=== PATIENT | female | born 1970 | race Caucasian/White ===

== ENCOUNTER 2016-10-24 22:32 | Emergency (ER) | payer OTHER ==
[2016-10-25 01:08] VITALS: BP 139/87
== END 2016-10-25 01:08 | disposition home or self-care (01) ==
LOC: ED 22:32
DX: J20.9 Acute bronchitis, unspecified (principal)

== ENCOUNTER 2017-04-10 06:52 | Emergency (ER) | payer OTHER ==
[2017-04-10 07:54] LABS: BASOPHIL % 0.4 % (0-2); PLATELET COUNT 338 x10^3mcL (130-400); RED CELL DISTRIBUTION WIDTH 13.4 % (11.5-14.5)
[2017-04-10 08:33] LABS: CALCIUM 8.3 mg/dL (8.5-10.1); CARBON DIOXIDE 25.8 mmol/L (21-32); CHLORIDE SERUM 104 mmol/L (98-107); CREATININE SERUM 0.7 mg/dL (0.6-1.0); GFR1 > 60 mL/min; GLUCOSE SERUM 126 mg/dL (74-106); SODIUM SERUM 138 mmol/L (136-145)
[2017-04-10 08:39] LABS: ALBUMIN 3.8 g/dL (3.4-5.0); ALKALINE PHOSPHATASE 105 U/L (46-116); ALT/SGPT 54 U/L (14-59); AMYLASE 45 U/L (25-115); AST/SGOT 19 U/L (15-37); BILIRUBIN TOTAL 0.4 mg/dL (0.20-1.00); LIPASE 144 IU/L (73-393); TOTAL PROTEIN, SERUM 7.8 g/dL (6.4-8.2)
[2017-04-10 10:30] VITALS: BP 121/62
== END 2017-04-10 10:30 | disposition home or self-care (01) ==
LOC: ED 06:52
PROVIDERS: Specialist
DX: D25.9 Leiomyoma of uterus, unspecified (principal); K21.9 Gastro-esophageal reflux disease without esophagitis; G51.0 Bell's palsy
CPT/HCPCS: 83880; J1885; J7030

== ENCOUNTER 2017-06-26 15:19 | Emergency (ER) | payer OTHER ==
[~2017-06-26] VITALS: Ht 152.4 cm; Wt 64.4 kg
[2017-06-26 15:53] VITALS: Ht 152.4 cm; Wt 64.4 kg
[2017-06-26 17:31] VITALS: BP 131/74
== END 2017-06-26 17:31 | disposition home or self-care (01) ==
LOC: ED 15:19
DX: R10.9 Unspecified abdominal pain (principal); R19.7 Diarrhea, unspecified; R11.2 Nausea with vomiting, unspecified; K21.9 Gastro-esophageal reflux disease without esophagitis; G51.0 Bell's palsy

== ENCOUNTER 2017-07-11 07:35 | Emergency (ER) | payer OTHER ==
[2017-07-11 07:48] VITALS: BP 133/78
[2017-07-11 08:22] LABS: BASOPHIL % 0.4 % (0-2); PLATELET COUNT 381 x10^3mcL (130-400); RED CELL DISTRIBUTION WIDTH 13.1 % (11.5-14.5)
[2017-07-11 08:23] LABS: UA SPECIFIC GRAVITY <=1.005 (1.005-1.035); microscopic required? YES; urine erythrocyte 2+ (NEGATIVE)
[2017-07-11 08:29] LABS: CALCIUM 8.7 mg/dL (8.5-10.1); CARBON DIOXIDE 23.1 mmol/L (21-32); CHLORIDE SERUM 103 mmol/L (98-107); CREATININE SERUM 0.7 mg/dL (0.6-1.0); GFR1 > 60 mL/min; GLUCOSE SERUM 128 mg/dL (74-106); POTASSIUM SERUM 3.8 mmol/L (3.5-5.1); SODIUM SERUM 138 mmol/L (136-145)
[2017-07-11 08:34] LABS: ALBUMIN 3.7 g/dL (3.4-5.0); ALKALINE PHOSPHATASE 103 U/L (46-116); ALT/SGPT 40 U/L (14-59); AMYLASE 49 U/L (25-115); AST/SGOT 18 U/L (15-37); BILIRUBIN TOTAL 0.51 mg/dL (0.20-1.00); LIPASE 128 IU/L (73-393); TOTAL PROTEIN, SERUM 7.7 g/dL (6.4-8.2)
== END 2017-07-11 11:13 | disposition home or self-care (01) ==
LOC: ED 07:35
PROVIDERS: Specialist
DX: R10.32 Left lower quadrant pain (principal); N83.201 Unspecified ovarian cyst, right side
CPT/HCPCS: 83880; J1885; J7030

== ENCOUNTER 2018-11-28 18:50 | Emergency (ER) | payer MEDICAID ==
[~2018-11-28] VITALS: Ht 162.6 cm; Wt 58.5 kg
[2018-11-28 19:04] VITALS: Ht 162.6 cm; Wt 58.5 kg
[2018-11-28 20:05] LABS: BASOPHIL % 0.2 % (0-2); PLATELET COUNT 328 x10^3mcL (130-400)
[2018-11-28 20:13] LABS: CHLORIDE SERUM 108 mmol/L (98-107); CREATININE SERUM 0.7 mg/dL (0.6-1.0); GFR1 > 60 mL/min; GLUCOSE SERUM 118 mg/dL (74-106); POTASSIUM SERUM 3.9 mmol/L (3.5-5.1); SODIUM SERUM 144 mmol/L (136-145)
[2018-11-28 20:20] LABS: ALBUMIN 4.1 g/dL (3.4-5.0); ALKALINE PHOSPHATASE 80 U/L (46-116); ALT/SGPT 26 U/L (14-59); AST/SGOT 11 U/L (15-37); BILIRUBIN TOTAL 0.48 mg/dL (0.20-1.00); LIPASE 131 IU/L (73-393); TOTAL PROTEIN, SERUM 7.6 g/dL (6.4-8.2)
[2018-11-28 22:58] VITALS: BP 125/75
== END 2018-11-28 22:58 | disposition home or self-care (01) ==
LOC: ED 18:50
PROVIDERS: Emergency Medicine
DX: R10.9 Unspecified abdominal pain (principal); R11.10 Vomiting, unspecified; R19.7 Diarrhea, unspecified; E86.0 Dehydration; M79.672 Pain in left foot; M79.671 Pain in right foot; K21.9 Gastro-esophageal reflux disease without esophagitis; Z98.890 Other specified postprocedural states
CPT/HCPCS: 87046; 87046-59; J1885; J2405; J7030